=== PATIENT | male | born 1970 | race Caucasian/White ===

== ENCOUNTER 2018-12-04 08:50 | Emergency (ER) | payer BC ==
[2018-12-04 09:03] VITALS: BP 155/85
--- NOTE | 2018-12-04 10:08 | ER Document Report ---
HPI - HPI Patient complains to provider of: Hemorrhoids Time Seen by Provider: 12/04/18 09:15 Pain Level: 3 Context: Patient is a 48-year-old male presents to the emergency department for possible hemorrhoids. Patient states last 2 days he has had very hard time having a bowel movement. "I feel like I am pooping a tennis ball." States he did take a laxative yesterday around noon. States he had 3 bowel movement since then. States now he does not feel as though he has any problems having a bowel movement he just has pain around his rectum. Patient's denying any blood or melena or dark-colored stool. Patient states he feels as though he may have an hemorrhoid. 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 Patient's denying any abdominal pain, vomiting or fever. Patient takes no daily medications, denying allergies. - CONSTITUTIONAL Constitutional: DENIES: Fever, Chills - EENT EENT: DENIES: Sore Throat, Ear Pain, Eye problems - NEURO Neurology: DENIES: Headache, Weakness, Vision blurred, Dizzinesss / Vertigo - CARDIOVASCULAR Cardiovascular: DENIES: Chest pain - RESPIRATORY Respiratory: DENIES: Trouble Breathing, Coughing - GASTROINTESTINAL Gastrointestinal: DENIES: Abdominal Pain, Black / Bloody Stools - URINARY Urinary: DENIES: Dysuria, Urgency, Frequency - MUSCULOSKELETAL Musculoskeletal: DENIES: Extremity pain Past Medical History - General Information source: Patient - Social History Smoking Status: Never Smoker Chew tobacco use (# tins/day): No Frequency of alcohol use: Social Drug Abuse: None Family History: Reviewed & Not Pertinent Patient has suicidal ideation: No Patient has homicidal ideation: No Renal/ Medical History: Denies: Hx Peritoneal Dialysis Vertical Provider Document - CONSTITUTIONAL Agree With Documented VS: Yes Notes: GENERAL: Alert, interacts well. No acute distress. HEAD: Normocephalic, atraumatic. EYES: Pupils equal, round, and reactive to light. Extraocular movements intact. ENT: Oral mucosa moist, tongue midline. NECK: Full range of motion. Supple. Trachea midline. LUNGS: Clear to auscultation bilaterally, no wheezes, rales, or rhonchi. No respiratory distress. HEART: Regular rate and rhythm. No murmur ABDOMEN: Soft, non-tender. Non-distended. Bowel sounds present in all 4 quadrants. EXTREMITIES: Moves all 4 extremities spontaneously. No edema, normal radial and dorsalis pedis pulses bilaterally. No cyanosis. BACK: no cervical, thoracic, lumbar midline tenderness. No saddle anesthesia, normal distal neurovascular exam. NEUROLOGICAL: Alert and oriented x3. Normal speech. cranial nerves II through XII grossly intact PSYCH: Normal affect, normal mood. SKIN: Warm, dry, normal turgor. No rashes or lesions noted. Rectum: [employer] FIGU[employer]OA patient does have a nonthrombosed small hemorrhoid 6:00, internal exam reveals no thrombosed hemorrhoids felt, no obvious bright red blood or melena in stool seen in the rectal vault. Course - Re-evaluation Re-evalutation: 12/04/18 10:05 I discussed with patient at bedside proper treatment for an external hemorrhoid. I have also discussed close follow-up with gastroenterology for continued care, especially due to patient's history of a rectal fistula. Patient voices understanding, stable for discharge. - Vital Signs Vital signs: Temp Pulse Resp BP Pulse Ox 98.3 F 74 16 155/85 H 98 12/04/18 09:02 12/04/18 09:02 12/04/18 09:02 12/04/18 09:02 12/04/18 09:02 Discharge - Discharge Clinical Impression: Hemorrhoid Qualifiers: Hemorrhoid type: unspecified Qualified Code(s): K64.9 - Unspecified hemorrhoids Condition: Stable Disposition: HOME, SELF-CARE Instructions: Constipation ([facility]), Laxative ([facility]), Hemorrhoids ([facility]), HC Hemorrhoid Cream ([facility]) Additional Instructions: As we discussed you have been seen and treated in the emergency department for external hemorrhoids. You should partake in sits baths. This is Epson salts mixed in warm water. He should also use Preparation H which I provided a prescription for. You can also use stool softeners to prevent any pain or discomfort during a bowel movement. Please stay well-hydrated and follow-up with your primary care provider. Phone numbers for gastroenterology will be provided for you for continued follow-up and care. Please return to the emergency room for any concerns. Prescriptions: Docusate Sodium [Colace 100 mg Capsule] 100 mg PO DAILY #30 capsule Hydrocortisone [Preparation H] 26 gm TP TID PRN #1 cream..g. PRN Reason: Referrals: MARICEL RIVAS MD [ACTIVE STAFF] - Follow up as needed
== END 2018-12-04 10:14 | disposition home or self-care (01) ==
LOC: ER 08:50
DX: K64.9 Unspecified hemorrhoids (principal); K62.89 Other specified diseases of anus and rectum
CPT/HCPCS: 99283